=== PATIENT | female | born 1955 | race Caucasian/White ===

== ENCOUNTER → 2016-10-23 | Outpatient (CLI) | payer BC ==
[~2016-10-23] MED LIST: AMLO2.5T PO; DTRSR4 PO; HYDR200T5 PO; LOSA1TAB PO; METH118C PO; ONDA4TAB65 PO; PRT/20 PO
[2016-10-23 17:54] LABS: BASO % 0.5 %; BASO ABS # 0.03 K/uL (0-0.2); COMPLETE YES; HEMATOCRIT 35.9 % (37-47); LYMPH % 19.3 %; LYMPH ABS # 1.07 K/uL (1.2-3.4); MEAN CELL VOLUME 83.7 fL (80-100); MEAN CORPUSCULAR HEMOGLOBIN 27.7 pg (25-34); MEAN CORPUSCULAR HGB CONC 33.1 g/dl (32-36); MEAN PLATELET VOLUME 11.7 fL (7.4-10.4); MONO % 8.7 %; NEUT % 69.5 %; PLATELET COUNT 158 K/uL (130-400); RED BLOOD COUNT 4.29 M/uL (4.2-5.4); WHITE BLOOD COUNT 5.54 K/uL (4.8-10.8)
[2016-10-23 18:17] LABS: BLOOD UREA NITROGEN 16 mg/dl (7-18); BUN/CREATININE RATIO 20.7 (10-20); CARBON DIOXIDE 27 mmol/L (21-32); CHLORIDE 111 mmol/L (98-107); CREATININE 0.75 mg/dl (0.60-1.20); POTASSIUM 3.4 mmol/L (3.5-5.1); SODIUM 143 mmol/L (136-145)
== END | disposition home or self-care (01) ==
LOC: C.LAB 16:54
PROVIDERS: ATTEND Urology
DX: N20.0 Calculus of kidney (principal)

== ENCOUNTER → 2016-10-23 | Outpatient (CLI) | payer BC ==
--- NOTE | 2016-10-23 14:30 | DIAGNOSTIC IMAGING REPORT ---
ABD/PELVIS NO IV OR ORAL CONT HISTORY: 61-year-old female presents with abdominal pain and history of kidney stones. Patient denies hematuria. COMPARISON: None available. TECHNIQUE: Multiple axial CT images of the abdomen and pelvis were obtained without IV contrast. FINDINGS: The coronary arterial calcifications are partially imaged. The imaged lung bases are clear. There is no gross pneumoperitoneum. There are several low attenuating lesions throughout the left hepatic lobe, largest of which measures up to 1.5 x 2.1 cm with near water attenuation suggesting cyst. The remainder subcentimeter lesions are too small to characterize. Layering gallstones are seen within the gallbladder without CT evidence of acute cholecystitis. The spleen and adrenal glands are within normal limits. There is moderate pancreatic atrophy. 0.8 x 0.5 x 1.8 cm calculus involves the proximal left ureter causing proximal mild hydroureteronephrosis. There is an additional 3 mm calculus of the superior pole left kidney with a 2 mm calculus of the inferior pole left kidney, both of which are nonobstructing. There is minimal high attenuating likely ingested material within the gastric lumen. There is no bowel obstruction. There is minimal nonspecific stranding of the mid mesentery seen on image 50 of series 2. Noninflamed appearing colonic diverticuli are present. Urinary bladder, uterus and adnexa are within normal limits. The soft tissues are unremarkable. Intervertebral disc space narrowing is present most prominently at L5-S1. 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 IMPRESSION: 1. Linear calculus within the mid left ureter measures up to 1.8 cm in length and causes mild hydroureteronephrosis. Additional nonobstructing calculi are present within the left kidney. 2. Cholelithiasis without CT evidence of acute cholecystitis. 3. Colonic diverticulosis. 4. 2.1 cm low attenuating hepatic lesion near the cristian hepatis suggests cyst. Additional subcentimeter low attenuating lesions throughout the left hepatic lobe are too small to characterize and may reflect additional cysts. Electronically signed by: Mauricio Nguyen 10/23/2016 2:29 PM Dictated Date/Time: 10/23/2016 2:16 PM
== END | disposition home or self-care (01) ==
LOC: C.CTS 13:11
PROVIDERS: ATTEND Urology
DX: N20.0 Calculus of kidney (principal); N20.1 Calculus of ureter; K80.20 Calculus of gallbladder without cholecystitis without obstruction; K57.30 Diverticulosis of large intestine without perforation or abscess without bleeding; K76.9 Liver disease, unspecified

== ENCOUNTER → 2016-11-01 | Day surgery (SDC) | payer BC ==
[2016-10-25 13:27] VITALS: Ht 175.3 cm; Wt 91.0 kg
[~2016-11-01] VITALS: Ht 175.3 cm; Wt 91.0 kg
[~2016-11-01] MED LIST changes: +ATROPINE SULFATE 0.1 MG/ML 5ML SYR IV PRN; +CIPROFLOXACIN 400MG / D5W IV SCH; +DEXAMETHASONE SOD INJ 4 MG/ML VIAL ONE; +EpHEDrine SULFATE INJ 50 MG/ML AMP IV PRN; +FENTANYL CITRATE INJ 50 MCG/1 ML 2 ML VIAL IV PRN; +FENTANYL CITRATE INJ 50 MCG/1 ML 2 ML VIAL ONE; +LACTATED RINGER'S 1000ML 1,000 ML IV SCH; +LIDOCAINE HCL 2% 2 ML VIAL (20MG/ML) ONE; +MIDAZOLAM HCL 1 MG/ML 2ML VIAL ONE; +ONDANSETRON INJ 2 MG/ML 2 ML VIAL IV PRN; +ONDANSETRON INJ 2 MG/ML 2 ML VIAL ONE; +OXYCODONE/ACETAMINOPHEN 5-325 TAB PO PRN; +PROMETHAZINE HCL INJ 6.25 MG in SODIUM CHLORIDE 0.9% 50ML 50 ML IV PRN; +PROPOFOL IV EMULSION 10 MG/ML 20 ML VIAL IV ONE
--- NOTE | 2016-11-01 11:36 | History & Physical Bridge Note ---
H&P Re-Evaluation Bridge Note: I have examined the patient, reviewed the History & Physical and in the interval since the performance of the History & Physical I have noted the following changes of clinical significance: No changes noted
--- NOTE | 2016-11-01 12:15 | [facility] Operative Report ---
Operative Report Operative Date Nov 01, 2016. Pre-Operative Diagnosis Left ureteral stone Post-Operative Diagnosis Same Procedure(s) Performed Left ureteral ESWL Surgeon Dewey Cannon Hand Bulldozer Surgeon(s) NA Estimated Blood Loss NA Findings Good stone fragmentation on fluoro Specimens NA Drains NA Anesthesia [facility] Complication(s) None Disposition Recovery Room / PACU Indications Left ureteral stone Description of Procedure The patient was brought to the litho suite. She was correctly identified and the stone was visualized on his most recent x-rays. After the correct time out was performed the patient was positioned over the therapy head. An adequate level of anesthesia was administered. The extracorporeal shockwave lithotripsy treatment was then commenced. Please see the [place] Management sheet for complete treatment summary. After completion of the procedure the patient was taken to the recovery room in stable condition. I attest to the content of the Intraoperative Record and any orders documented therein. Any exceptions are noted below.
--- NOTE | 2016-11-01 12:52 | Discharge Instructions ---
Discharge Instructions Date of Service Nov 01, 2016. Admission Reason for Admission: Left Stones Discharge Discharge Diagnosis / Problem: Left ureteral stone s/p ESWL Discharge Goals Goal(s): Decrease discomfort, Improve disease control, Therapeutic intervention Activity Recommendations Activity Limitations: as noted below Lifting Limitations: no more than 25 pounds, gradually increase as tolerated ( x 3 days) Exercise/Sports Limitations: rest today, gradually increase as tolerated (x 3 days) May Resume Sexual Activity: when tolerated Shower/Bathe: no limitations Driving or Machine Use: resume 1 day after discharge . Instructions / Follow-Up Instructions / Follow-Up Strain urine as instructed and bring fragments to postop visit Follow-up in office as scheduled, KUB Xray before visit Discharge Diet Recommended Diet: Regular Diet (good fluid intake) Procedures Procedures Performed: Left ureteral ESWL Pending Studies Studies pending at discharge: no Medical Emergencies . Who to Call and When: Medical Emergencies: If at any time you feel your situation is an emergency, please call 911 immediately. . Non-Emergent Contact Non-Emergency issues call your: Urologist Call Non-Emergent contact if: you have a fever, temperature is above 101, your pain is not controlled, your pain is worsening, your pain is unusual for you, your pain is concerning you, you have any medication questions . . "Provider Documentation" section prepared by Rodrigo Palomo. . VTE Core Measure Inpt VTE Proph given/why not?: SCD's
--- NOTE | 2016-11-01 13:24 | [facility] Post Operative Brief Note ---
Immediate Operative Summary Operative Date Nov 01, 2016. Pre-Operative Diagnosis Left ureteral stone Post-Operative Diagnosis Same Procedure(s) Performed Left ureteral ESWL Surgeon Dewey Cannon [employer] Switch[employer] Operator Surgeon(s) NA Estimated Blood Loss NA Findings Good fragmentation of stone on fluoroscopy Specimens NA Drains NA Anesthesia [facility] Complication(s) None Disposition Recovery Room / PACU
--- NOTE | 2016-11-01 14:05 | Anesthesia Progress Nt - [facility] ---
Anesthesia Post Op Note Date & Time Nov 01, 2016 at 14:05 Vital Signs Pain Intensity: 0 Vital Signs Past 12 Hours Date Time Temp Pulse Resp B/P (MAP) Pulse Ox O2 Delivery O2 Flow Rate FiO2 11/01/16 14:01 121/76 11/01/16 13:58 69 16 100 11/01/16 13:58 68 16 11/01/16 13:56 126/74 11/01/16 13:53 66 12 11/01/16 13:53 66 12 100 11/01/16 13:51 120/77 11/01/16 13:49 124/75 11/01/16 13:48 64 11/01/16 13:48 64 100 11/01/16 13:48 36.1 67 12 124/75 100 Mask 6 11/01/16 11:50 36.7 70 16 132/86 (101) 99 Room Air Notes Mental Status: alert / awake / arousable, participated in evaluation Pt Amnestic to Procedure: Yes Nausea / Vomiting: adequately controlled Pain: adequately controlled Airway Patency, RR, SpO2: stable & adequate BP & HR: stable & adequate Hydration State: stable & adequate Anesthetic Complications: no major complications apparent
[2016-11-01 14:37] VITALS: BP 143/85; PULSE 64; TEMP 36.2; O2SAT 99
== END | disposition home or self-care (01) ==
LOC: X.SURG 11:01
PROVIDERS: ATTEND Urology
DX: N20.1 Calculus of ureter (principal); I10 Essential (primary) hypertension; M19.90 Unspecified osteoarthritis, unspecified site; Z79.899 Other long term (current) drug therapy

== ENCOUNTER → 2016-11-01 | Outpatient (CLI) | payer BC ==
[~2016-11-01] MED LIST changes: -ATROPINE SULFATE 0.1 MG/ML 5ML SYR IV PRN; -CIPROFLOXACIN 400MG / D5W IV SCH; -DEXAMETHASONE SOD INJ 4 MG/ML VIAL ONE; -EpHEDrine SULFATE INJ 50 MG/ML AMP IV PRN; -FENTANYL CITRATE INJ 50 MCG/1 ML 2 ML VIAL IV PRN; -FENTANYL CITRATE INJ 50 MCG/1 ML 2 ML VIAL ONE; -LACTATED RINGER'S 1000ML 1,000 ML IV SCH; -LIDOCAINE HCL 2% 2 ML VIAL (20MG/ML) ONE; -MIDAZOLAM HCL 1 MG/ML 2ML VIAL ONE; -ONDANSETRON INJ 2 MG/ML 2 ML VIAL IV PRN; -ONDANSETRON INJ 2 MG/ML 2 ML VIAL ONE; -OXYCODONE/ACETAMINOPHEN 5-325 TAB PO PRN; -PROMETHAZINE HCL INJ 6.25 MG in SODIUM CHLORIDE 0.9% 50ML 50 ML IV PRN; -PROPOFOL IV EMULSION 10 MG/ML 20 ML VIAL IV ONE
--- NOTE | 2016-11-01 11:13 | DIAGNOSTIC IMAGING REPORT ---
KUB HISTORY:61 [id number] Nephrolithiasis COMPARISON: CT abdomen and pelvis 10/23/2016 TECHNIQUE: KUB radiograph FINDINGS: Large calculus of the mid left ureter is again seen at the level of the transverse process L4 measuring up to 1.4 cm in length without progression from comparison study. The previously noted punctate nonobstructing left renal calculi are not clearly identified. The bowel gas pattern is nonobstructive. No fracture. Degenerative changes are seen within the lower lumbar spine. IMPRESSION: No significant progression of the 1.4 cm calculus of the mid left ureter. The above report was generated using voice recognition software. It may contain grammatical, syntax or spelling errors. Electronically signed by: Mauricio Nguyen M.D. 11/01/2016 11:12 AM Dictated Date/Time: 11/01/2016 10:56 AM
== END | disposition home or self-care (01) ==
LOC: C.RAD1850 10:43
PROVIDERS: ATTEND Urology
DX: N20.0 Calculus of kidney (principal)

== ENCOUNTER → 2016-11-13 | Outpatient (CLI) | payer BC ==
[~2016-11-13] MED LIST changes: -ONDA4TAB65 PO
--- NOTE | 2016-11-13 13:19 | DIAGNOSTIC IMAGING REPORT ---
KUB HISTORY: 61 years-old Female NEPHROLITHIASIS acute left-sided flank pain COMPARISON: KUB 11/01/2016, CT 10/23/2016 TECHNIQUE: KUB radiograph FINDINGS: The previously noted left ureteral calculus is no longer identified. Left-sided nephrolithiasis is redemonstrated. Phleboliths are seen within the pelvis. Bowel gas pattern is nonobstructive. Cholelithiasis redemonstrated. No fracture. IMPRESSION: 1. Previously noted left mid ureteral calculus is no longer identified. 2. Left-sided nephrolithiasis. 3. Cholelithiasis. The above report was generated using voice recognition software. It may contain grammatical, syntax or spelling errors. Electronically signed by: Mauricio Nguyen M.D. 11/13/2016 1:17 PM Dictated Date/Time: 11/13/2016 1:09 PM
== END | disposition home or self-care (01) ==
LOC: C.RAD 11:56
PROVIDERS: ATTEND Urology
DX: N20.0 Calculus of kidney (principal); K80.20 Calculus of gallbladder without cholecystitis without obstruction

== ENCOUNTER → 2016-11-13 | Outpatient (CLI) | payer BC | END | disposition home or self-care (01) | LOC: C.LABSPEC 16:55 | PROVIDERS: ATTEND Urology | DX: N20.0 Calculus of kidney (principal) ==